=== PATIENT | female | born 1950 | race Two or more races ===

== ENCOUNTER 2018-01-30 16:31 | Inpatient (IN) | payer MEDICARE, OTHER ==
[~2018-01-30] VITALS: Ht 160 cm; Wt 88.0 kg
[2018-01-30] MEDS ORDERED: MORPHINE SULFATE 2 MG/1 ML DISP.SYRIN IV PRN (19:45)
[2018-01-30] MEDS ORDERED: ONDANSETRON HCL 4 MG TABLET PO PRN (19:45)
[2018-01-30 20:00] VITALS: BP 124/72
[2018-01-30] MEDS ORDERED: METO-356 PO (20:26)
[2018-01-30] MEDS ORDERED: LEVO88TA5 PO (20:26)
[2018-01-30] MEDS ORDERED: ESCI10TA PO (20:26)
[2018-01-30] MEDS ORDERED: MAGN400O6 PO (20:26)
[2018-01-30] MEDS ORDERED: ATOR40TA PO (20:26)
[2018-01-30] MEDS ORDERED: ENOX40DI SQ (20:26)
[2018-01-30] MEDS ORDERED: ZINC113P2 TP (20:26)
[2018-01-30] MEDS ORDERED: LOSA100T15 PO (20:26)
[2018-01-30] MEDS ORDERED: HYDR-3974 PO (20:26)
[2018-01-30] MEDS ORDERED: ACET-2154 PO (20:26)
[2018-01-30] MEDS ORDERED: HYDR-3980 PO (20:26)
[2018-01-30] MEDS ORDERED: MAG-55 PO (20:26)
[2018-01-30] MEDS ORDERED: HYDR12.5 PO (20:26)
[2018-01-30] MEDS ORDERED: METF-494 PO (20:26)
[2018-01-30] MEDS ORDERED: ACETAMINOPHEN 325 MG TABLET PO PRN (20:30)
[2018-01-30] MEDS ORDERED: MAGNESIUM HYDROXIDE 30 ML LIQUID UDC PO PRN (20:30)
[2018-01-30] MEDS ORDERED: Medication Not On Formulary EA (Mag Hydrox/Al Hydrox/Simeth (Maalox Max Strength Susp) 3 PO SCH (20:30)
[2018-01-30] MEDS ORDERED: METF500T6 PO (20:42)
[2018-01-30] MEDS ORDERED: MAG HYDROX/AL HYDROX/SIMETH 30 ML LIQUID UDC PO PRN (20:45)
[2018-01-30 21:07] LABS: BASOPHILS # (AUTO) 0.1 K/uL (0.0-8.0); BASOPHILS % (AUTO) 0.9 % (0.0-2.0); EOSINOPHILS # (AUTO) 0.2 K/uL (0.0-0.7); EOSINOPHILS % (AUTO) 1.6 % (0.0-7.0); HEMATOCRIT 36.2 % (31.2-41.9); HEMOGLOBIN 12.5 g/dL (10.9-14.3); LYMPHOCYTES # (AUTO) 2.1 K/uL (20.0-40.0); LYMPHOCYTES % (AUTO) 21.3 % (20.5-51.5); MEAN CORPUSCULAR HEMOGLOBIN 30.4 uug (24.7-32.8); MEAN CORPUSCULAR HGB CONC 34 g/dL (32.3-35.6); MEAN CORPUSCULAR VOLUME 88.3 fL (75.5-95.3); MONOCYTES # (AUTO) 0.7 K/uL (2.0-10.0); MONOCYTES % (AUTO) 6.7 % (0.0-11.0); NEUTROPHILS # (AUTO) 6.9 K/uL (1.8-8.9); NEUTROPHILS % (AUTO) 69.5 % (38.5-71.5); PLATELET COUNT (AUTO) 351 K/uL (179-408); WHITE BLOOD COUNT (AUTO) 9.8 K/uL (3.8-11.8)
[2018-01-30 21:20] LABS: CREATININE 0.9 mg/dL (0.6-1.3); MAGNESIUM 1.9 mg/dL (1.8-2.4); PHOSPHOROUS 3.2 mg/dL (2.5-4.9)
[2018-01-30] MEDS: ATORVASTATIN 40 MG TABLET PO SCH (21:23)
[2018-01-30] MEDS: BLOOD SUGAR DIAGNOSTIC 1 EACH STRIP VI SCH (21:24)
[2018-01-31 05:47] VITALS: BP 123/71
[2018-01-31] MEDS: BLOOD SUGAR DIAGNOSTIC 1 EACH STRIP VI SCH ×4 (07:04→21:06)
[2018-01-31] MEDS ORDERED: LEVOTHYROXINE SODIUM 88 MCG TABLET PO SCH (07:30)
[2018-01-31 08:45] VITALS: BP 130/75
[2018-01-31] MEDS: HYDROCODONE/APAP 5-325MG TABLET PO PRN ×2 (08:45→21:06)
[2018-01-31] MEDS: METFORMIN HCL 500 MG TABLET PO SCH ×2 (08:46→17:38)
[2018-01-31] MEDS: HYDROCHLOROTHIAZIDE 12.5 MG CAPSULE PO SCH (08:46)
[2018-01-31] MEDS: LOSARTAN POTASSIUM 50 MG TABLET PO SCH (08:47)
[2018-01-31] MEDS: METOPROLOL SUCCINATE XL 25 MG TAB.SR.24H PO SCH (08:47)
[2018-01-31] MEDS: ENOXAPARIN SODIUM 40 MG/0.4 ML DISP.SYRIN SQ SCH (08:51)
[2018-01-31] MEDS: ESCITALOPRAM OXALATE 10 MG TABLET PO SCH (09:00)
[2018-01-31] MEDS ORDERED: Medication Not On Formulary EA (Losartan Potassium 100 MG) PO SCH (09:00)
[2018-01-31 16:30] VITALS: BP 126/68
[2018-01-31 20:28] VITALS: BP 122/64
[2018-01-31] MEDS: ATORVASTATIN 40 MG TABLET PO SCH (21:06)
[2018-02-01 05:30] VITALS: BP 132/76
[2018-02-01] MEDS: LEVOTHYROXINE SODIUM 88 MCG TABLET PO SCH (07:05)
[2018-02-01] MEDS: BLOOD SUGAR DIAGNOSTIC 1 EACH STRIP VI SCH ×4 (07:06→20:46)
[2018-02-01] MEDS: HYDROCODONE/APAP 10-325 MG TABLET PO PRN ×2 (09:19→20:44)
[2018-02-01] MEDS: ESCITALOPRAM OXALATE 10 MG TABLET PO SCH (09:19)
[2018-02-01] MEDS: METFORMIN HCL 500 MG TABLET PO SCH ×2 (09:19→17:10)
[2018-02-01] MEDS: LOSARTAN POTASSIUM 50 MG TABLET PO SCH (09:20)
[2018-02-01] MEDS: HYDROCHLOROTHIAZIDE 12.5 MG CAPSULE PO SCH (09:20)
[2018-02-01] MEDS: METOPROLOL SUCCINATE XL 25 MG TAB.SR.24H PO SCH (09:20)
[2018-02-01] MEDS: ENOXAPARIN SODIUM 40 MG/0.4 ML DISP.SYRIN SQ SCH (09:22)
[2018-02-01 20:05] VITALS: BP 131/74
[2018-02-01] MEDS: ATORVASTATIN 40 MG TABLET PO SCH (20:43)
[2018-02-02 05:53] VITALS: BP 119/59
[2018-02-02] MEDS: LEVOTHYROXINE SODIUM 88 MCG TABLET PO SCH (06:15)
[2018-02-02] MEDS: BLOOD SUGAR DIAGNOSTIC 1 EACH STRIP VI SCH ×4 (06:16→20:35)
[2018-02-02] MEDS: METFORMIN HCL 500 MG TABLET PO SCH ×2 (08:58→17:13)
[2018-02-02] MEDS: METOPROLOL SUCCINATE XL 25 MG TAB.SR.24H PO SCH (09:01)
[2018-02-02] MEDS: HYDROCHLOROTHIAZIDE 12.5 MG CAPSULE PO SCH (09:01)
[2018-02-02] MEDS: LOSARTAN POTASSIUM 50 MG TABLET PO SCH (09:02)
[2018-02-02] MEDS: HYDROCODONE/APAP 5-325MG TABLET PO PRN (09:06)
[2018-02-02] MEDS: ENOXAPARIN SODIUM 40 MG/0.4 ML DISP.SYRIN SQ SCH (09:07)
[2018-02-02 10:36] VITALS: BP 151/76
[2018-02-02 20:02] VITALS: BP 113/53
[2018-02-02] MEDS: ATORVASTATIN 40 MG TABLET PO SCH (20:33)
[2018-02-02] MEDS: HYDROCODONE/APAP 10-325 MG TABLET PO PRN (22:11)
[2018-02-03 05:41] VITALS: BP 116/61
[2018-02-03] MEDS: LEVOTHYROXINE SODIUM 88 MCG TABLET PO SCH (06:27)
[2018-02-03] MEDS: BLOOD SUGAR DIAGNOSTIC 1 EACH STRIP VI SCH ×4 (06:29→20:51)
[2018-02-03] MEDS: METFORMIN HCL 500 MG TABLET PO SCH ×2 (08:23→17:20)
[2018-02-03] MEDS: HYDROCODONE/APAP 10-325 MG TABLET PO PRN ×2 (08:27→20:47)
[2018-02-03] MEDS: ENOXAPARIN SODIUM 40 MG/0.4 ML DISP.SYRIN SQ SCH (08:30)
[2018-02-03] MEDS: HYDROCHLOROTHIAZIDE 12.5 MG CAPSULE PO SCH (08:41)
[2018-02-03] MEDS: METOPROLOL SUCCINATE XL 25 MG TAB.SR.24H PO SCH (08:42)
[2018-02-03] MEDS: LOSARTAN POTASSIUM 50 MG TABLET PO SCH (08:42)
[2018-02-03 09:01] VITALS: BP 133/76
[2018-02-03 19:32] VITALS: BP 132/68
[2018-02-03] MEDS: ATORVASTATIN 40 MG TABLET PO SCH (20:46)
[2018-02-04 05:32] VITALS: BP 121/59
[2018-02-04] MEDS: LEVOTHYROXINE SODIUM 88 MCG TABLET PO SCH (06:05)
[2018-02-04] MEDS: BLOOD SUGAR DIAGNOSTIC 1 EACH STRIP VI SCH ×4 (06:08→21:19)
[2018-02-04 07:47] LABS: BASOPHILS # (AUTO) 0.1 K/uL (0.0-8.0); BASOPHILS % (AUTO) 0.8 % (0.0-2.0); EOSINOPHILS # (AUTO) 0.2 K/uL (0.0-0.7); EOSINOPHILS % (AUTO) 1.7 % (0.0-7.0); HEMATOCRIT 36.5 % (31.2-41.9); HEMOGLOBIN 12.7 g/dL (10.9-14.3); LYMPHOCYTES # (AUTO) 2.4 K/uL (20.0-40.0); MEAN CORPUSCULAR HEMOGLOBIN 30.6 uug (24.7-32.8); MEAN CORPUSCULAR HGB CONC 35 g/dL (32.3-35.6); MEAN CORPUSCULAR VOLUME 87.6 fL (75.5-95.3); MONOCYTES # (AUTO) 0.6 K/uL (2.0-10.0); MONOCYTES % (AUTO) 6.9 % (0.0-11.0); NEUTROPHILS # (AUTO) 5.9 K/uL (1.8-8.9); NEUTROPHILS % (AUTO) 64.6 % (38.5-71.5); PLATELET COUNT (AUTO) 430 K/uL (179-408); RED BLOOD CELL COUNT(AUTO) 4.17 MIL/uL (3.63-4.92); WHITE BLOOD COUNT (AUTO) 9.1 K/uL (3.8-11.8)
[2018-02-04 08:08] LABS: THYROID STIMULATING HORMONE 3.143 mIU/mL (0.358-3.740)
[2018-02-04] MEDS: METFORMIN HCL 500 MG TABLET PO SCH ×2 (08:27→17:40)
[2018-02-04] MEDS: LOSARTAN POTASSIUM 50 MG TABLET PO SCH (08:28)
[2018-02-04] MEDS: HYDROCHLOROTHIAZIDE 12.5 MG CAPSULE PO SCH (08:28)
[2018-02-04] MEDS: METOPROLOL SUCCINATE XL 25 MG TAB.SR.24H PO SCH (08:28)
[2018-02-04 08:29] LABS: BILIRUBIN,TOTAL 0.6 mg/dL (0.2-1.0); CREATININE 1.2 mg/dL (0.6-1.3); MAGNESIUM 2.1 mg/dL (1.8-2.4); PHOSPHOROUS 4.3 mg/dL (2.5-4.9); POTASSIUM 3.7 mmol/L (3.5-5.1); TOTAL PROTEIN, SERUM 7.8 g/dL (6.4-8.2)
[2018-02-04] MEDS: ENOXAPARIN SODIUM 40 MG/0.4 ML DISP.SYRIN SQ SCH (08:33)
[2018-02-04 16:31] VITALS: BP 119/61
[2018-02-04 20:20] VITALS: BP 129/68
[2018-02-04] MEDS: ATORVASTATIN 40 MG TABLET PO SCH (21:19)
[2018-02-05 05:24] VITALS: BP 136/71
[2018-02-05] MEDS: BLOOD SUGAR DIAGNOSTIC 1 EACH STRIP VI SCH ×4 (06:39→20:48)
[2018-02-05] MEDS: LEVOTHYROXINE SODIUM 88 MCG TABLET PO SCH (08:39)
[2018-02-05] MEDS: METFORMIN HCL 500 MG TABLET PO SCH ×2 (08:40→17:03)
[2018-02-05] MEDS: METOPROLOL SUCCINATE XL 25 MG TAB.SR.24H PO SCH (08:42)
[2018-02-05] MEDS: LOSARTAN POTASSIUM 50 MG TABLET PO SCH (08:42)
[2018-02-05] MEDS: HYDROCHLOROTHIAZIDE 12.5 MG CAPSULE PO SCH (08:44)
[2018-02-05] MEDS: ENOXAPARIN SODIUM 40 MG/0.4 ML DISP.SYRIN SQ SCH (08:44)
[2018-02-05 19:41] VITALS: BP 113/53
[2018-02-05] MEDS: ATORVASTATIN 40 MG TABLET PO SCH (20:48)
[2018-02-06] MEDS: LEVOTHYROXINE SODIUM 88 MCG TABLET PO SCH (06:14)
[2018-02-06] MEDS: BLOOD SUGAR DIAGNOSTIC 1 EACH STRIP VI SCH ×4 (06:15→21:52)
[2018-02-06 06:47] VITALS: BP 137/68
[2018-02-06] MEDS: ENOXAPARIN SODIUM 40 MG/0.4 ML DISP.SYRIN SQ SCH (08:32)
[2018-02-06] MEDS: METOPROLOL SUCCINATE XL 25 MG TAB.SR.24H PO SCH (08:35)
[2018-02-06] MEDS: LOSARTAN POTASSIUM 50 MG TABLET PO SCH (08:36)
[2018-02-06] MEDS: HYDROCHLOROTHIAZIDE 12.5 MG CAPSULE PO SCH (08:36)
[2018-02-06] MEDS: METFORMIN HCL 500 MG TABLET PO SCH ×2 (08:36→16:57)
[2018-02-06 16:15] VITALS: BP 131/70
[2018-02-06 20:24] VITALS: BP 120/68
[2018-02-06] MEDS: ATORVASTATIN 40 MG TABLET PO SCH (21:51)
[2018-02-07 05:00] VITALS: BP 129/71
[2018-02-07] MEDS: LEVOTHYROXINE SODIUM 88 MCG TABLET PO SCH (06:06)
[2018-02-07] MEDS: BLOOD SUGAR DIAGNOSTIC 1 EACH STRIP VI SCH ×2 (06:44→12:02)
[2018-02-07] MEDS: METFORMIN HCL 500 MG TABLET PO SCH ×2 (08:26→17:08)
[2018-02-07] MEDS: HYDROCHLOROTHIAZIDE 12.5 MG CAPSULE PO SCH (08:33)
[2018-02-07] MEDS: LOSARTAN POTASSIUM 50 MG TABLET PO SCH (08:33)
[2018-02-07] MEDS: ENOXAPARIN SODIUM 40 MG/0.4 ML DISP.SYRIN SQ SCH (08:40)
[2018-02-07] MEDS: METOPROLOL SUCCINATE XL 25 MG TAB.SR.24H PO SCH (08:41)
[2018-02-07 15:52] VITALS: BP 112/60
[2018-02-07 20:58] VITALS: BP 127/67
[2018-02-07] MEDS: ATORVASTATIN 20 MG TABLET PO SCH (21:00)
[2018-02-08 06:00] VITALS: BP 125/69
[2018-02-08] MEDS: LEVOTHYROXINE SODIUM 88 MCG TABLET PO SCH (06:26)
[2018-02-08] MEDS: METFORMIN HCL 500 MG TABLET PO SCH ×2 (08:00→18:44)
[2018-02-08] MEDS: LOSARTAN POTASSIUM 50 MG TABLET PO SCH (08:47)
[2018-02-08] MEDS: ENOXAPARIN SODIUM 40 MG/0.4 ML DISP.SYRIN SQ SCH (08:50)
[2018-02-08] MEDS: HYDROCHLOROTHIAZIDE 12.5 MG CAPSULE PO SCH (08:51)
[2018-02-08] MEDS: METOPROLOL SUCCINATE XL 25 MG TAB.SR.24H PO SCH (18:44)
[2018-02-08 19:30] VITALS: BP 121/65
[2018-02-08] MEDS: ATORVASTATIN 20 MG TABLET PO SCH (21:03)
[2018-02-09] MEDS: LEVOTHYROXINE SODIUM 88 MCG TABLET PO SCH (06:28)
[2018-02-09 08:59] VITALS: BP 121/69
[2018-02-09] MEDS: METFORMIN HCL 500 MG TABLET PO SCH ×2 (09:12→17:35)
[2018-02-09] MEDS: HYDROCHLOROTHIAZIDE 12.5 MG CAPSULE PO SCH (09:12)
[2018-02-09] MEDS: LOSARTAN POTASSIUM 50 MG TABLET PO SCH (09:15)
[2018-02-09] MEDS: ENOXAPARIN SODIUM 40 MG/0.4 ML DISP.SYRIN SQ SCH (09:37)
[2018-02-09 16:37] VITALS: BP 116/67
[2018-02-09] MEDS: METOPROLOL SUCCINATE XL 25 MG TAB.SR.24H PO SCH (17:35)
[2018-02-09 20:00] VITALS: BP 121/67
[2018-02-09] MEDS: ATORVASTATIN 20 MG TABLET PO SCH (21:19)
[2018-02-10] MEDS: LEVOTHYROXINE SODIUM 88 MCG TABLET PO SCH (06:12)
[2018-02-10 06:56] VITALS: BP 138/68
[2018-02-10] MEDS: METFORMIN HCL 500 MG TABLET PO SCH ×2 (08:00→17:08)
[2018-02-10] MEDS: LOSARTAN POTASSIUM 50 MG TABLET PO SCH ×2 (09:00→09:59)
[2018-02-10] MEDS: HYDROCHLOROTHIAZIDE 12.5 MG CAPSULE PO SCH ×2 (09:00→09:59)
[2018-02-10] MEDS: ENOXAPARIN SODIUM 40 MG/0.4 ML DISP.SYRIN SQ SCH (09:00)
[2018-02-10] MEDS: METOPROLOL SUCCINATE XL 25 MG TAB.SR.24H PO SCH (17:00)
[2018-02-10 20:00] VITALS: BP 139/70
[2018-02-10] MEDS: ATORVASTATIN 20 MG TABLET PO SCH (20:37)
[2018-02-11] MEDS: LEVOTHYROXINE SODIUM 88 MCG TABLET PO SCH (06:19)
[2018-02-11 06:38] VITALS: BP 115/65
[2018-02-11 08:10] VITALS: BP 121/71
[2018-02-11] MEDS: METFORMIN HCL 500 MG TABLET PO SCH ×2 (08:19→17:11)
[2018-02-11] MEDS: HYDROCHLOROTHIAZIDE 12.5 MG CAPSULE PO SCH ×2 (08:19→09:00)
[2018-02-11] MEDS: LOSARTAN POTASSIUM 50 MG TABLET PO SCH (08:20)
[2018-02-11] MEDS: ENOXAPARIN SODIUM 40 MG/0.4 ML DISP.SYRIN SQ SCH (08:21)
[2018-02-11 16:20] VITALS: BP 112/60
[2018-02-11] MEDS: METOPROLOL SUCCINATE XL 25 MG TAB.SR.24H PO SCH (17:00)
[2018-02-11 20:00] VITALS: BP 123/70
[2018-02-11] MEDS: ATORVASTATIN 20 MG TABLET PO SCH (21:22)
[2018-02-12 04:00] VITALS: BP 116/62
[2018-02-12] MEDS: LEVOTHYROXINE SODIUM 88 MCG TABLET PO SCH (06:52)
[2018-02-12] MEDS: METFORMIN HCL 500 MG TABLET PO SCH ×2 (08:00→18:05)
[2018-02-12] MEDS: ENOXAPARIN SODIUM 40 MG/0.4 ML DISP.SYRIN SQ SCH (08:35)
[2018-02-12] MEDS: HYDROCHLOROTHIAZIDE 12.5 MG CAPSULE PO SCH (09:00)
[2018-02-12] MEDS: LOSARTAN POTASSIUM 50 MG TABLET PO SCH (09:00)
[2018-02-12 15:29] VITALS: BP 126/59
[2018-02-12] MEDS: METOPROLOL SUCCINATE XL 25 MG TAB.SR.24H PO SCH (18:06)
[2018-02-12 20:13] VITALS: BP 135/73
[2018-02-12] MEDS: ATORVASTATIN 20 MG TABLET PO SCH (21:12)
[2018-02-13 05:00] VITALS: BP 127/69
[2018-02-13] MEDS: LEVOTHYROXINE SODIUM 88 MCG TABLET PO SCH (06:28)
[2018-02-13 07:48] VITALS: BP 125/65
[2018-02-13] MEDS: METFORMIN HCL 500 MG TABLET PO SCH ×2 (12:47→17:21)
[2018-02-13] MEDS: HYDROCHLOROTHIAZIDE 12.5 MG CAPSULE PO SCH (12:47)
[2018-02-13] MEDS: ENOXAPARIN SODIUM 40 MG/0.4 ML DISP.SYRIN SQ SCH (12:48)
[2018-02-13] MEDS: LOSARTAN POTASSIUM 50 MG TABLET PO SCH (12:48)
[2018-02-13 16:01] VITALS: BP 125/72
[2018-02-13] MEDS: METOPROLOL SUCCINATE XL 25 MG TAB.SR.24H PO SCH (17:21)
[2018-02-13 19:30] VITALS: BP 122/66
[2018-02-13] MEDS: ATORVASTATIN 20 MG TABLET PO SCH (20:33)
[2018-02-14 04:33] VITALS: BP 147/78
[2018-02-14] MEDS: LEVOTHYROXINE SODIUM 88 MCG TABLET PO SCH (06:11)
[2018-02-14] MEDS: METFORMIN HCL 500 MG TABLET PO SCH (08:00)
[2018-02-14] MEDS: ENOXAPARIN SODIUM 40 MG/0.4 ML DISP.SYRIN SQ SCH (09:39)
[2018-02-14 09:40] VITALS: BP 136/81
[2018-02-14] MEDS: HYDROCHLOROTHIAZIDE 12.5 MG CAPSULE PO SCH (09:40)
[2018-02-14] MEDS: LOSARTAN POTASSIUM 50 MG TABLET PO SCH (09:40)
== END 2018-02-14 16:10 | disposition home health service (06) | DRG 561 ==
PROVIDERS: ADMIT Physical Medicine & Rehabilitation Pain Medicine; ATTEND Physical Medicine & Rehabilitation Pain Medicine
DX: S72.102D Unspecified trochanteric fracture of left femur, subsequent encounter for closed fracture with routine healing (principal); W18.30XD Fall on same level, unspecified, subsequent encounter; E03.9 Hypothyroidism, unspecified; E11.9 Type 2 diabetes mellitus without complications; I10 Essential (primary) hypertension; R26.9 Unspecified abnormalities of gait and mobility; E78.5 Hyperlipidemia, unspecified; F32.9 Major depressive disorder, single episode, unspecified; F41.9 Anxiety disorder, unspecified; K21.9 Gastro-esophageal reflux disease without esophagitis; R53.1 Weakness; Z91.14 Patient's other noncompliance with medication regimen
CPT/HCPCS: 36415; 73501; 73502; 82306; 83735; 84100; 84443; 85025; 92526; 92610; 97110; 97112; 97116; 97165; 97530; 97535; J1650